=== PATIENT | male | born 1965 | race African-American/Black ===

== ENCOUNTER 2017-12-21 15:12 | Emergency (ER) | payer BC ==
[~2017-12-21] VITALS: Ht 180.3 cm; Wt 95.3 kg
[2017-12-21 15:12] VITALS: BP_SYST 155
[2017-12-21 15:56] VITALS: BP_SYST 155
== END 2017-12-21 15:56 | disposition home or self-care (01) ==
LOC: SED 15:12
DX: M79.651 Pain in right thigh (principal); R03.0 Elevated blood-pressure reading, without diagnosis of hypertension
CPT/HCPCS: 99283